=== PATIENT | female | born 1960 ===

== ENCOUNTER 2016-08-31 07:08 | Emergency (ER) | payer MEDICARE, MEDICAID ==
[2016-08-31 07:17] VITALS: RESP 18; O2SAT 99
[2016-08-31] MEDS ORDERED: Sodium Chloride 0.9% 1,000 ML IV STA (07:36)
[2016-08-31 08:05] LABS: BASO # 0.1 K/uL (0.0-0.2); BASO % 1.1 % (0.0-2.0); EOS # 0.1 K/uL (0.0-0.7); EOS % 1.5 % (0.0-4.0); HEMOGLOBIN 12.3 g/dL (12.0-16.0); LYMPH # 1.4 K/uL (1.0-4.3); LYMPH % 25.6 % (20.0-40.0); MEAN CELL VOLUME 87.8 fl (81.0-99.0); MEAN CORPUSCULAR HEMOGLOBIN 28.3 pg (27.0-31.0); MEAN CORPUSCULAR HGB CONC 32.2 g/dL (33.0-37.0); MEAN PLATELET VOLUME 9.8 fl (7.2-11.7); MONO # 0.6 K/uL (0.0-0.8); MONO % 11.6 % (0.0-10.0); NEUT # 3.3 K/uL (1.8-7.0); NEUT % 60.2 % (50.0-75.0); NRBC % 0.1 % (0.0-0.0); RBC 4.34 Mil/uL (3.80-5.20); RED CELL DISTRIBUTION WIDTH 17.4 % (11.5-14.5); WHITE BLOOD COUNT 5.5 K/uL (4.8-10.8)
[2016-08-31 08:13] LABS: ALB/GLOB RATIO 0.9 (1.0-2.1); ALBUMIN 3.8 g/dL (3.5-5.0); ALT/SGPT 33 U/L (9-52); AST/SGOT 22 U/L (14-36); BLOOD UREA NITROGEN 6 mg/dl (7-17); GFR AFRICAN-AMERICAN > 60; GFR NON-AFRICAN AMERICAN > 60; LIPASE 50 U/L (23-300)
[2016-08-31] MEDS ORDERED: Potassium Chloride 20 mEq ER Tab PO ONE ×4 (08:51→13:15)
[2016-08-31 09:06] LABS: RENAL EPITHELIAL 1 /hpf (0-3); SQUAMOUS EPITHIAL 17 /hpf (0-5); URINE BACTERIA FEW (<OCC); URINE BILIRUBIN SMALL (NEGATIVE); URINE BLOOD SMALL (NEGATIVE); URINE CLARITY CLOUDY (Clear); URINE COLOR AMBER (YELLOW); URINE GLUCOSE (UA) NEG (Normal); URINE HYALINE CAST 0-2 /hpf (0-2); URINE LEUKOCYTE ESTERASE SMALL Leu/uL (Negative); URINE NITRATE POSITIVE (NEGATIVE); URINE PROTEIN 100 mg/dL (NEGATIVE)
[2016-08-31 09:57] VITALS: TEMP 98
--- NOTE | 2016-08-31 13:15 | ED PDOC ---
HPI: General Adult Time Seen by Provider: 08/31/16 07:29 Chief Complaint (Nursing): GI Problem Chief Complaint (Provider): nausea History Per: Patient, Supervisor [employer] (Ayleen pugh RN) Onset/Duration Of Symptoms: Gradual, Other (intermittent for weeks) Current Symptoms Are (Timing): Intermittent Episodes Severity: Mild Recently: Treated By A Physician Additional Complaint(s): 56yo female history gastric bypass may 2016 at [facility] presents w intermittent nausea ongoing for several weeks. Has had several episodes of vomiting, denies hematemesis, abd pain, diarrhea or fever. Admits to some malaise and generalized weakness. Has not see GI since surgery, followed up with surgeon several months ago. Meds reviewed, include omeprazole, zofran, DM med and antihypertensive. Past Medical History Reviewed: Historical Data, Nursing Documentation, Vital Signs Vital Signs: Last Vital Signs Temp 98.0 F 08/31/16 12:37 Pulse 79 08/31/16 12:37 Resp 18 08/31/16 12:37 BP 99/58 L 08/31/16 12:37 Pulse Ox 99 08/31/16 12:37 - Medical History PMH: Diabetes, HTN, Hypercholesterolemia Denies: HIV, Chronic Kidney Disease - Surgical History Surgical History: Cholecystectomy Other surgeries: gastric bypass - Family History Family History: States: Unknown Family Hx - Social History Current smoker - smoking cessation education provided: No Alcohol: None - Immunization History Hx Tetanus Toxoid Vaccination: No Hx Influenza Vaccination: No - Home Medications Home Medications: Ambulatory Orders Medication Instructions Recorded Januvia 100 mg PO DAILY 12/15/13 Lisinopril 10 mg PO DAILY 12/15/13 Pioglitazone HCl and Metformin HCl 1 tab PO BID 12/15/13 500 mg-15 Welchol 625 mg PO TID 12/15/13 Aspirin [Ecotrin] 81 mg PO DAILY #0 ect 03/03/14 Metoclopramide [Reglan] 10 mg PO TID PRN #12 tab 08/31/16 Nitrofurantoin Macrocrystals 100 mg PO BID #14 cap 08/31/16 [Macrobid] - Allergies Allergies/Adverse Reactions: Allergies Allergy/AdvReac Type Severity Reaction Status Date / Time No Known Allergies Allergy Unverified 12/15/13 23:33 Review of Systems Constitutional: Negative for: Fever, Chills Eyes: Negative for: Vision Change ENT: Negative for: Ear Discharge, Throat Pain Cardiovascular: Negative for: Chest Pain, Palpitations, Orthopnea Respiratory: Negative for: Shortness of Breath Gastrointestinal: Positive for: Nausea, Vomiting. Negative for: Abdominal Pain , Diarrhea Genitourinary Female: Negative for: Dysuria Musculoskeletal: Negative for: Neck Pain, Shoulder Pain Skin: Negative for: Rash, Lesions Neurological: Negative for: Weakness, Numbness, Altered Mental Status Physical Exam - Reviewed Nursing Documentation Reviewed: Yes Vital Signs Reviewed: Yes - Physical Exam Appears: Positive for: Well, Non-toxic, No Acute Distress Head Exam: Positive for: ATRAUMATIC, NORMAL INSPECTION, NORMOCEPHALIC Skin: Positive for: Normal Color, Warm, DRY Eye Exam: Positive for: EOMI, Normal appearance, PERRL ENT: Positive for: Normal ENT Inspection Neck: Positive for: Normal, Painless ROM Cardiovascular/Chest: Positive for: Regular Rate, Rhythm Respiratory: Positive for: CNT, Normal Breath Sounds Gastrointestinal/Abdominal: Positive for: Normal Exam, Bowel Sounds, Soft. Negative for: Tenderness, Guarding Back: Positive for: Normal Inspection Extremity: Positive for: Normal ROM Neurologic/Psych: Positive for: Alert, Oriented - Laboratory Results Result Diagrams: 08/31/16 07:51 08/31/16 07:51 - ECG O2 Sat by Pulse Oximetry: 99 Medical Decision Making Medical Decision Making: workup initiated for nausea s/p gastric bypass several months ago. Abdomen nontender without c/o pain. labs and EKG reviewed mild hypokalemia, K+ replaced orally IVF and antiemetic initiated, w/ marked improvement over course ED stay. On re-eval at 1pm, denies complaints, tolerated PO lunch, no pain or nausea. Will give trial reglan as promotility agent and she will d/w her surgeon and GI doc, also referred environmental research project manager GI at [facility]. Rx macrobid for UTI. Disposition - Clinical Impression Clinical Impression: Nausea, UTI (urinary tract infection) - Patient ED Disposition Is Patient to be Admitted: No Counseled Patient/Family Regarding: Studies Performed, Diagnosis, Need For Followup, Rx Given - Disposition Referrals: Rosetta LOCKETT,MD Geovani [Medical Doctor] - Disposition: Routine/Home Disposition Time: 13:00 Condition: STABLE Additional Instructions: Followup with GI specialist and your gastric surgeon for further testing and treatment. Take medication as needed. Prescriptions: Metoclopramide [Reglan] 10 mg PO TID PRN #12 tab PRN Reason: Nausea/Vomiting Nitrofurantoin Macrocrystals [Macrobid] 100 mg PO BID #14 cap Instructions: Acute Nausea and Vomiting (ED), Urinary Tract Infection in Women (ED) Forms: [employer] (South African) Print Language: NICARAGUAN
[2016-08-31 13:22] VITALS: BP 100/67; PULSE 74
--- NOTE | 2016-08-31 19:24 | CARD ---
APPROVED REPORT EKG Measurement Heart [id number] <Conclusion> Normal sinus rhythm Minimal voltage criteria for LVH, may be normal variant Possible Anterior infarct, age undetermined Abnormal ECG
== END 2016-08-31 15:19 | disposition home or self-care (01) ==
LOC: H.ER 07:08
DX: N39.0 Urinary tract infection, site not specified (principal); R11.2 Nausea with vomiting, unspecified; E11.9 Type 2 diabetes mellitus without complications; E78.00 Pure hypercholesterolemia, unspecified; I10 Essential (primary) hypertension; Z79.82 Long term (current) use of aspirin
CPT/HCPCS: 80053; 81003; 83690; 85025; 93005; 96372; 96374; 99285; J2550; J2765; J7040

== ENCOUNTER 2016-09-14 01:55 | Emergency (ER) | payer MEDICARE, MEDICAID ==
[2016-09-14 02:15] VITALS: BMI 30.8
[2016-09-14 02:20] VITALS: BP 91/54; PULSE 102; RESP 17; TEMP 99.9; O2SAT 98
[2016-09-14] MEDS ORDERED: Sodium Chloride 0.9% 1,000 ML IV STA (03:21)
[2016-09-14 03:47] LABS: BASO # 0.1 K/uL (0.0-0.2); BASO % 0.8 % (0.0-2.0); EOS % 0.3 % (0.0-4.0); HEMOGLOBIN 13.5 g/dL (12.0-16.0); LYMPH # 1.4 K/uL (1.0-4.3); LYMPH % 12.6 % (20.0-40.0); MEAN CELL VOLUME 87.5 fl (81.0-99.0); MEAN CORPUSCULAR HEMOGLOBIN 28.4 pg (27.0-31.0); MEAN CORPUSCULAR HGB CONC 32.4 g/dL (33.0-37.0); MEAN PLATELET VOLUME 9.5 fl (7.2-11.7); MONO # 0.9 K/uL (0.0-0.8); MONO % 8.4 % (0.0-10.0); NEUT # 8.7 K/uL (1.8-7.0); NEUT % 77.9 % (50.0-75.0); NRBC % 0.1 % (0.0-0.0); RBC 4.75 Mil/uL (3.80-5.20); RED CELL DISTRIBUTION WIDTH 18.5 % (11.5-14.5); WHITE BLOOD COUNT 11.1 K/uL (4.8-10.8)
[2016-09-14 03:48] LABS: SQUAMOUS EPITHIAL 2 /hpf (0-5); URINE BACTERIA RARE (<OCC); URINE BILIRUBIN MODERATE (NEGATIVE); URINE BLOOD NEGATIVE (NEGATIVE); URINE CLARITY CLOUDY (Clear); URINE COLOR AMBER (YELLOW); URINE GLUCOSE (UA) NEG (Normal); URINE LEUKOCYTE ESTERASE MOD Leu/uL (Negative); URINE NITRATE POSITIVE (NEGATIVE); URINE PROTEIN 100 mg/dL (NEGATIVE)
[2016-09-14 03:57] LABS: ALBUMIN 4.2 g/dL (3.5-5.0); ALT/SGPT 30 U/L (9-52); AST/SGOT 17 U/L (14-36); BLOOD UREA NITROGEN 7 mg/dl (7-17); CALCIUM 9.3 mg/dL (8.4-10.2); GFR AFRICAN-AMERICAN > 60; GFR NON-AFRICAN AMERICAN > 60
--- NOTE | 2016-09-14 03:57 | ED PDOC ---
"HPI: Abdomen Time Seen by Provider: 09/14/16 02:57 Chief Complaint (Nursing): GI Problem Chief Complaint (Provider): Abdominal discomfort History Per: Patient History/Exam Limitations: no limitations Onset/Duration Of Symptoms: Persistent Outside of [place] travel?: No Current Symptoms Are (Timing): Still Present Associated Symptoms: Nausea, Vomiting Additional Complaint(s): The patient is a 56yo female, past medical history of gastric bypass conducted at [facility] months ago, presents to the ED for evaluation of persistent nausea and vomiting, present for the past month. Patient reports she was seen here three weeks ago and was informed to follow up with a GI as well as her gastric bypass surgeon but she states she instead followed up with her PCP. She reports a ultrasound was performed which showed everything was normal. Patient states she presented today because her nausea and spitting up is more frequent. She denies any abdominal pain, fever, chills. Patient also reports she hasn't been able to tolerate PO intake. She currently offers no additional medical complaints. Past Medical History Reviewed: Historical Data, Nursing Documentation, Vital Signs Vital Signs: Last Vital Signs Temp 99.9 F H 09/14/16 02:16 Pulse 102 H 09/14/16 02:16 Resp 17 09/14/16 02:16 BP 91/54 L 09/14/16 02:16 Pulse Ox 98 09/14/16 03:58 - Medical History PMH: Diabetes, HTN, Hypercholesterolemia Denies: HIV, Chronic Kidney Disease - Surgical History Surgical History: Cholecystectomy - Family History Family History: States: Unknown Family Hx - Immunization History Hx Tetanus Toxoid Vaccination: No Hx Influenza Vaccination: No - Home Medications Home Medications: Ambulatory Orders Medication Instructions Recorded Januvia 100 mg PO DAILY 12/15/13 Lisinopril 10 mg PO DAILY 12/15/13 Pioglitazone HCl and Metformin HCl 1 tab PO BID 12/15/13 500 mg-15 Welchol 625 mg PO TID 12/15/13 Aspirin [Ecotrin] 81 mg PO DAILY #0 ect 03/03/14 Metoclopramide [Reglan] 10 mg PO TID PRN #12 tab 08/31/16 Nitrofurantoin Macrocrystals 100 mg PO BID #14 cap 08/31/16 [Macrobid] Nitrofurantoin Macrocrystals 100 mg PO BID #14 cap 09/14/16 [Macrobid] - Allergies Allergies/Adverse Reactions: Allergies Allergy/AdvReac Type Severity Reaction Status Date / Time No Known Allergies Allergy Unverified 09/14/16 02:15 Review of Systems ROS Statement: Except As Marked, All Systems Reviewed And Found Negative Constitutional: Negative for: Fever, Chills Gastrointestinal: Positive for: Nausea, Vomiting. Negative for: Abdominal Pain Physical Exam - Reviewed Nursing Documentation Reviewed: Yes Vital Signs Reviewed: Yes - Physical Exam Appears: Positive for: Non-toxic, Uncomfortable Head Exam: Positive for: ATRAUMATIC, NORMAL INSPECTION, NORMOCEPHALIC Skin: Positive for: Normal Color, Warm, DRY Eye Exam: Positive for: Normal appearance Neck: Positive for: Normal, Supple Cardiovascular/Chest: Positive for: Regular Rate, Rhythm Respiratory: Positive for: Normal Breath Sounds. Negative for: Respiratory Distress Gastrointestinal/Abdominal: Positive for: Normal Exam, Soft. Negative for: Tenderness Neurologic/Psych: Positive for: Alert, Oriented - Laboratory Results Result Diagrams: 09/14/16 03:45 09/14/16 03:45 - ECG O2 Sat by Pulse Oximetry: 98 Medical Decision Making Medical Decision Making: Time: 0305 Impression: Nausea and vomiting in setting of recent gastric bypass Plan: -- Labs -- IV Fluids -- Zofran 4 mg IV -- CT AP w/ IV contrast Reassess CT scan: ABDOMEN: Liver: Unremarkable. No mass. Gallbladder and bile ducts: Cholecystectomy. No ductal dilation. Pancreas: No ductal dilation. No mass. Spleen: No splenomegaly. Adrenals: 1.0 x 1.2 x 1.1 cm lesion within RIGHT adrenal gland, indeterminate by CT criteria. 1.5 x 1.1 x 1.5 cm lesion within LEFT adrenal gland, indeterminate by CT criteria. Kidneys and ureters: No mass. No hydronephrosis. Stomach and bowel: Postsurgical changes of stomach. Mild mural thickening vs underdistention gastric antrum. No obstruction. Appendix: No findings to suggest acute appendicitis. PELVIS: Bladder: Unremarkable. Reproductive: Probable 2.1 x 1.3 x 2.1 cm LEFT parovarian cyst, grossly stable. HALI COSTELLO | Final Radiology Report CONFIDENTIALITY STATEMENT This report is intended only for use by the referring physician, and only in accordance with law. If you received this in error, call [phone]. Page 2 of 2 ABDOMEN and PELVIS: Intraperitoneal space: No significant fluid collection. No free air. Bones/joints: Mild degenerative changes of spine. No acute fracture. Soft tissues: Unremarkable. Vasculature: Minimal atherosclerotic disease. No aneurysm. Lymph nodes: No pathologically enlarged lymph nodes. IMPRESSION: 1. Mild gastric wall thickening vs underdistention. Clinical correlation is needed. 2. Adrenal lesions, indeterminate. Recommend nonemergent MRI. 3. Incidental/non-acute findings are described above. Thank you for allowing us to participate in the care of your patient. Dictated and Authenticated by: Jacky Schultz MD 09/14/2016 5:23 AM Eastern Time ([place] & [place]) Scribe Attestation: Documented by Edita Burrows acting as a scribe for STEPHEN Sky. No acute findings noted on CT scan. advised pt to f.u with biatracic surgeon and f.u with GI d/c on pepcid stable VS and well appearing. PT has UTI-will be d.c on macrobid Provider Attestation: All medical record entries made by the Scribe were at my direction and personally dictated by me. I have reviewed the chart and agree that the record accurately reflects my personal performance of the history, physical exam, medical decision making, and the department course for this patient. I have also personally directed, reviewed, and agree with the discharge instructions and disposition. Disposition - Clinical Impression Clinical Impression: UTI (urinary tract infection) - Patient ED Disposition Is Patient to be Admitted: No Counseled Patient/Family Regarding: Studies Performed, Diagnosis, Need For Followup, Rx Given - Disposition Referrals: Andrew Jeffries MD [Primary Care Provider] - Disposition: Routine/Home Disposition Time: 05:35 Condition: IMPROVED Prescriptions: Nitrofurantoin Macrocrystals [Macrobid] 100 mg PO BID #14 cap Instructions: Urinary Tract Infection in Women (ED) Forms: [email or web address] (South Sudanese) Print Language: PARAGUAYAN"
[2016-09-14] MEDS ORDERED: Sodium Chloride 0.9% 50 ML IV ONE (04:07)
[2016-09-14] MEDS ORDERED: Iohexol 300 100 ML IJ ONE (04:07)
--- NOTE | 2016-09-14 05:23 | CT ---
EXAM: CT Abdomen and Pelvis With Intravenous Contrast CLINICAL HISTORY: 56 years old, female; Pain; Abdominal pain; Generalized; Prior surgery; Surgery date: 1-6 months; Surgery type: Gastric bypass 3 months ago. Gall bladder removed; Additional info: Vague abd pain TECHNIQUE: Axial computed tomography images of the abdomen and pelvis with intravenous contrast. This CT exam was performed using one or more of the following dose reduction techniques: automated exposure control, adjustment of the mA and/or kV according to patient size, and/or use of iterative reconstruction technique. Coronal and sagittal reformatted images were created and reviewed. CONTRAST: 95 mL of [id number] administered intravenously. COMPARISON: CT ABD/PELV W/O CONTRA 08/13/2011 9:30:29 PM FINDINGS: Limitations: Motion artifact - mild. Lower thorax: No acute findings. ABDOMEN: Liver: Unremarkable. No mass. Gallbladder and bile ducts: Cholecystectomy. No ductal dilation. Pancreas: No ductal dilation. No mass. Spleen: No splenomegaly. Adrenals: 1.0 x 1.2 x 1.1 cm lesion within RIGHT adrenal gland, indeterminate by CT criteria. 1.5 x 1.1 x 1.5 cm lesion within LEFT adrenal gland, indeterminate by CT criteria. Kidneys and ureters: No mass. No hydronephrosis. Stomach and bowel: Postsurgical changes of stomach. Mild mural thickening vs underdistention gastric antrum. No obstruction. Appendix: No findings to suggest acute appendicitis. PELVIS: Bladder: Unremarkable. Reproductive: Probable 2.1 x 1.3 x 2.1 cm LEFT parovarian cyst, grossly stable. ABDOMEN and PELVIS: Intraperitoneal space: No significant fluid collection. No free air. Bones/joints: Mild degenerative changes of spine. No acute fracture. Soft tissues: Unremarkable. Vasculature: Minimal atherosclerotic disease. No aneurysm. Lymph nodes: No pathologically enlarged lymph nodes. IMPRESSION: 1. Mild gastric wall thickening vs underdistention. Clinical correlation is needed. 2. Adrenal lesions, indeterminate. Recommend nonemergent MRI. 3. Incidental/non-acute findings are described above.
== END 2016-09-14 06:01 | disposition home or self-care (01) ==
LOC: H.ER 01:55
DX: N39.0 Urinary tract infection, site not specified (principal); E11.9 Type 2 diabetes mellitus without complications; E78.00 Pure hypercholesterolemia, unspecified; I10 Essential (primary) hypertension; Z79.82 Long term (current) use of aspirin
CPT/HCPCS: 74177; 80053; 81003; 85025; 96374; 99283; J2405; J7040; Q9967

== ENCOUNTER 2016-10-19 11:01 | Emergency (ER) | payer MEDICARE, MEDICAID ==
[2016-10-19 11:03] VITALS: BMI 27.6
[2016-10-19 11:04] VITALS: RESP 18
[2016-10-19] MEDS ORDERED: diaZEpam 10 mg/2 ml Inj IVP STA (11:22)
[2016-10-19] MEDS ORDERED: Sodium Chloride 0.9% 500 ML IV ONE (11:31)
--- NOTE | 2016-10-19 11:31 | ED PDOC ---
Arrival/HPI - General Time Seen by Provider: 10/19/16 11:05 - History of Present Illness Narrative History of Present Illness (Text): 10/19/16 11:29 Patient is a 56 y/o F presenting with L shoulder pain. Patient reports 2 day history of L shoulder and neck stiffness. She reports that she thinks it is from sleeping awkwardly. She reports wearing a neck pillow with no improvement of symptoms. Patient's history significant for recent gastric bypass and she is NPO with R picc line for TPN and therefore reports she is unable to take medication for her muscle pain. Denies chest pain, shortness of breath. Denies trauma. Denies midline neck pain. Denies weakness, numbness, tingling, change in bladder or bowel habits. Past Medical History - Cardiac Hx Hypertension: Yes - Pulmonary Hx Respiratory Disorders: No - Neurological Hx Neurological Disorder: No - HEENT Hx HEENT Disorder: No - Renal Hx Renal Disorder: No - Endocrine/Metabolic Hx Diabetes Mellitus Type 2: Yes - Hematological/Oncological Hx AIDS: No - Integumentary Hx Dermatological Disorder: No - Musculoskeletal/Rheumatological Hx Falls: No - Gastrointestinal Other/Comment: Gastric bypass surgery with frequent nausea - Genitourinary/Gynecological Hx Genitourinary Disorders: No - Psychiatric Hx Psychophysiologic Disorder: No Hx Substance Use: No - Surgical History Hx Cholecystectomy: Yes - Anesthesia Hx Anesthesia: Yes Hx Anesthesia Reactions: No Hx Malignant Hyperthermia: No - Suicidal Assessment Feels Threatened In Home Enviroment: No Family/Social History Family/Social History: No Known Family HX Smoking Status: Never Smoked Hx Alcohol Use: No Hx Substance Use: No Allergies/Home Meds Allergies/Adverse Reactions: Allergies No Known Allergies Allergy (Unverified 09/14/16 02:15) Home Medications: Home Meds Medication Instructions Recorded Confirmed Januvia 100 mg PO DAILY 12/15/13 03/03/14 Lisinopril 10 mg PO DAILY 12/15/13 03/03/14 Pioglitazone HCl and Metformin HCl 1 tab PO BID 12/15/13 03/03/14 500 mg-15 Welchol 625 mg PO TID 12/15/13 03/03/14 Review of Systems - Review of Systems Eyes: absent: Vision Changes Respiratory: absent: SOB, Cough, Sputum, Wheezing Cardiovascular: absent: Chest Pain, Palpitations Gastrointestinal: absent: Abdominal Pain, Constipation, Diarrhea, Nausea, Vomiting, Appetite Changes Genitourinary Female: absent: Dysuria, Frequency, Hematuria, Urine Output Changes, Vaginal Bleeding, Vaginal Discharge Musculoskeletal: Neck Pain. absent: Joint Swelling Neurological: absent: Headache, Dizziness, Focal Weakness, Gait Changes, Speech Changes, Facial Droop, Disequilibrium Physical Exam Vital Signs Temp Pulse Resp BP Pulse Ox 10/19/16 15:43 98 F 89 18 118/60 97 10/19/16 15:19 98 F 89 18 114/69 97 10/19/16 13:08 94 H 18 113/72 99 10/19/16 11:03 99.5 F 103 H 18 105/82 99 Temperature: Afebrile Blood Pressure: Normal Pulse: Regular Respiratory Rate: Normal Appearance: Positive for: Well-Appearing, Non-Toxic, Comfortable Pain Distress: None Mental Status: Positive for: Alert and Oriented X 3 - Systems Exam Head: Present: Atraumatic, Normocephalic Pupils: Present: PERRL Extroacular Muscles: Present: EOMI Conjunctiva: Present: Normal Mouth: Present: Moist Mucous Membranes Neck: Present: Normal Range of Motion, Paraspinal Tenderness (L side). No: Meningeal Signs, MIDLINE TENDERNESS Respiratory/Chest: Present: Clear to Auscultation, Good Air Exchange. No: Respiratory Distress, Accessory Muscle Use Cardiovascular: Present: Regular Rate and Rhythm, Normal S1, S2. No: Murmurs Abdomen: No: Tenderness, Distention Back: Present: Normal Inspection Upper Extremity: Present: Normal Inspection, NORMAL PULSES, Other (Pain with ROM of L shoulder). No: Deformity Lower Extremity: Present: Normal Inspection Neurological: Present: GCS=15, CN II-XII Intact, Speech Normal, Gait Normal Psychiatric: Present: Alert, Oriented x 3 Medical Decision Making ED Course and Treatment: 10/19/16 11:58 EKG shows NSR at 95bpm wtih normal intervals and no ST changes 10/19/16 13:17 1258 Chest X-Ray HISTORY: COMPARISON: 03/02/2014 TECHNIQUE: Chest PA and lateral FINDINGS: LINES AND TUBES: The right PICC line terminates in the right atrium. LUNG AND PLEURA: The lungs are well inflated and clear. HEART AND MEDIASTINUM: The heart is not enlarged. The hilar and mediastinal contours are within normal limits. SKELETAL STRUCTURES: The bony structures are within normal limits for the patient's age. VISUALIZED UPPER ABDOMEN: Normal. OTHER FINDINGS: There are multiple surgical clips in the epigastrium. IMPRESSION: Right PICC line terminates in the right atrium. No acute findings. 1310 Shoulder X-Ray PROCEDURE: Radiographs of the Left Shoulder HISTORY: left shoulder pain COMPARISON: No prior. FINDINGS: BONES: There is no acute displaced fracture or bone destruction. Bone alignment is normal. There is diffuse bone demineralization. JOINTS: There is mild degenerative osteoarthrosis in the acromioclavicular joint. The glenohumeral joint is normal. SOFT TISSUES: Normal. OTHER FINDINGS: None. IMPRESSION: No acute displaced fracture or dislocation. 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 Scribe Attestation: Documented by Duncan Liao, acting as a scribe for Meme Blanco MD. Provider Scribe Attestation: All medical record entries made by the Scribe were at my direction and personally dictated by me. I have reviewed the chart and agree that the record accurately reflects my personal performance of the history, physical exam, medical decision making, and the department course for this patient. I have also personally directed, reviewed, and agree with the discharge instructions and disposition. 10/19/16 13:20 10/19/16 14:12 Pain is improved. Patient reports that she will follow-up with PMD - RAD Interpretation Radiology Orders: 10/19/16 11:22 SHOULDER LEFT [RAD] Stat 10/19/16 11:23 CHEST TWO VIEWS (PA/LAT) [RAD] Stat - Medication Orders Current Medication Orders: Discontinued Medications Diazepam (Valium) 2 mg IVP STAT STA Stop: 10/19/16 11:23 Last Admin: 10/19/16 12:30 Dose: 2 mg Diazepam (Valium) Confirm Administered Dose 10 mg .ROUTE .STK-MED ONE Stop: 10/19/16 12:22 Sodium Chloride (Sodium Chloride 0.9%) 500 mls @ 500 mls/hr IV .Q1H ONE Stop: 10/19/16 12:30 Last Admin: 10/19/16 12:30 Dose: 500 mls/hr Ketorolac Tromethamine (Toradol) 30 mg IVP STAT STA Stop: 10/19/16 11:23 Last Admin: 10/19/16 12:30 Dose: 30 mg Ketorolac Tromethamine (Toradol) Confirm Administered Dose 30 mg .ROUTE .STK- MED ONE Stop: 10/19/16 12:22 Morphine Sulfate (Morphine) Confirm Administered Dose 4 mg .ROUTE .STK-MED ONE Stop: 10/19/16 13:55 Morphine Sulfate (Morphine) 4 mg IVP STAT STA Stop: 10/19/16 13:56 Last Admin: 10/19/16 13:56 Dose: 4 mg Disposition/Present on Arrival - Present on Arrival Any Indicators Present on Arrival: No History of DVT/PE: No History of Uncontrolled Diabetes: Yes Urinary Catheter: No History Surgical Site Infection Following: None - Disposition Have Diagnosis and Disposition been Completed?: Yes Diagnosis: Shoulder pain Disposition: HOME/ ROUTINE Disposition Time: 14:12 Patient Plan: Discharge Condition: GOOD Discharge Instructions (ExitCare): Shoulder Pain (ED) Additional Instructions: Return to ED if condition worsens. Follow-up with PMD. Follow-up with Bariatric surgeon. Forms: [employer] (Welsh)
[2016-10-19] MEDS ORDERED: diaZEpam 10 mg/2 ml Inj ONE (12:21)
[2016-10-19] MEDS ORDERED: Morphine 4 MG/ML VIAL IVP STA (12:56)
--- NOTE | 2016-10-19 12:59 | RAD ---
HISTORY: COMPARISON: 03/02/2014 TECHNIQUE: Chest PA and lateral FINDINGS: LINES AND TUBES: The right PICC line terminates in the right atrium. LUNG AND PLEURA: The lungs are well inflated and clear. HEART AND MEDIASTINUM: The heart is not enlarged. The hilar and mediastinal contours are within normal limits. SKELETAL STRUCTURES: The bony structures are within normal limits for the patient's age. VISUALIZED UPPER ABDOMEN: Normal. OTHER FINDINGS: There are multiple surgical clips in the epigastrium. IMPRESSION: Right PICC line terminates in the right atrium. No acute findings.
--- NOTE | 2016-10-19 13:03 | RAD ---
PROCEDURE: Radiographs of the Left Shoulder HISTORY: left shoulder pain COMPARISON: No prior. FINDINGS: BONES: There is no acute displaced fracture or bone destruction. Bone alignment is normal. There is diffuse bone demineralization. JOINTS: There is mild degenerative osteoarthrosis in the acromioclavicular joint. The glenohumeral joint is normal. SOFT TISSUES: Normal. OTHER FINDINGS: None. IMPRESSION: No acute displaced fracture or dislocation. 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
[2016-10-19 15:20] VITALS: PULSE 89; TEMP 98; O2SAT 97
[2016-10-19 15:43] VITALS: BP 118/60
--- NOTE | 2016-10-22 18:25 | CARD ---
APPROVED REPORT EKG Measurement Heart [id number] <Conclusion> Normal sinus rhythm Normal ECG
== END 2016-10-19 15:43 | disposition home or self-care (01) ==
LOC: H.ER 11:01
DX: M25.512 Pain in left shoulder (principal); E11.9 Type 2 diabetes mellitus without complications; I10 Essential (primary) hypertension; Z98.84 Bariatric surgery status
CPT/HCPCS: 71020; 73030; 96374; 96375; 99283; J1885; J2270; J3360; J7040